=== PATIENT | female | born 1990 | race African-American/Black ===

== ENCOUNTER 2020-03-10 17:28 | Emergency (ER) | payer OTHER ==
[~2020-03-10] VITALS: Ht 152.4 cm; Wt 59.0 kg
[~2020-03-10 17:28] MED LIST: COLACE 100 MG100 MG PO
[2020-03-10] MEDS ORDERED: NORFLEX100 MG PO (20:00)
[2020-03-10] MEDS ORDERED: NAPROSYN500 MG PO (20:00)
[2020-03-10 20:24] VITALS: BP 98/61
== END 2020-03-10 20:25 | disposition home or self-care (01) ==
LOC: ER 17:28
DX: S16.1XXA Strain of muscle, fascia and tendon at neck level, initial encounter (principal); S39.012A Strain of muscle, fascia and tendon of lower back, initial encounter; S29.012A Strain of muscle and tendon of back wall of thorax, initial encounter; M25.562 Pain in left knee; M25.552 Pain in left hip; Z79.899 Other long term (current) drug therapy; V49.9XXA Car occupant (driver) (passenger) injured in unspecified traffic accident, initial encounter; Y93.89 Activity, other specified; Y92.410 Unspecified street and highway as the place of occurrence of the external cause; Y99.8 Other external cause status